=== PATIENT | female | born 1965 | race Caucasian/White ===

== ENCOUNTER 2022-05-25 19:32 | Emergency (ER) | payer MEDICAID, SELFPAY ==
--- NOTE | ~2022-05-25 | CT_ITS ---
EXAMINATION: CT HEAD WITHOUT CONTRAST CLINICAL INFORMATION: EtOH. Fall. COMPARISON: None. TECHNIQUE: Contiguous axial imaging was performed from the skull base to vertex without intravenous contrast. This CT examination was performed using dose optimization techniques as appropriate, variously including the following: * Automated exposure control * Adjustment of mA and/or kV according to patient size (this includes techniques or standardized protocols for targeted exams where dose is matched to indication/reason for exam; i.e. extremities or head) Use of iterative reconstruction technique DLP: 789 mGy-cm. FINDINGS: There is no evidence of acute intracranial hemorrhage or territorial infarction. No abnormal mass effect or midline shift is seen. Garrett to white matter differentiation is well preserved. No extra-axial fluid collections are identified. No hydrocephalus. No significant volume loss. Patchy periventricular and deep white matter hypoattenuation is consistent with mild small vessel ischemic changes. No acute osseous or soft tissue abnormality. Smooth osseous excrescence extends peripherally off of the left parietal calvarium. The mastoid air cells and visualized portions of the paranasal sinuses are well aerated. CT/CT head/brain wo IV con IMPRESSION: No acute intracranial pathology.
[2022-05-25 19:40] VITALS: BP 126/76; PULSE 88; O2SAT 100; BMI 37.1
--- NOTE | 2022-05-25 20:25 | ED_ITS ---
HPI - Alcohol General Chief Complaint: ETOH/Substance Use Stated Complaint: Crisis ETOH Time Seen by Provider: 05/25/22 19:48 Source: patient Mode of arrival: ambulatory History of Present Illness HPI narrative: 56-year-old female with past medical history of ETOH abuse, presenting to the ED via EMS for ETOH intoxication and depression. Patient also reports mechanical trip and fall after getting off right at the [employer]. Denies head trauma or LOC. Patient states she is sick of living, admits to losing her daughter, brother, and in the last 6 months. Reports daily EtOH use, will not specify amount, does report history of ETOH withdrawal, denies withdrawal seizures. Denies other illicit substances, HI. Denies CP/SOB, abdominal pain, back pain, injury MD complaint: alcohol intoxication Last drink: Just prior to admission Related Data Allergies Allergy/AdvReac Type Severity Reaction Status Date / Time No Known Allergies Allergy Verified 05/25/22 20:06 Review of Systems Review of Systems: Constitutional: No Fever, No Chills, No Fatigue, No Malaise ENT/Mouth: No Ear Pain, No Nasal Congestion, No sore throat, No Rhinorrhea, No Swallowing Difficulty Eyes: No Eye Pain, No Swelling, No Redness Cardiovascular: No Chest Pain, No SOB Respiratory: No Cough, No Sputum, No Dyspnea Gastrointestinal: No Nausea, No Vomiting, No Diarrhea, No Constipation, No Abdominal pain Genitourinary: No Dysuria,No Hematuria, No Flank Pain Musculoskeletal: No joint pain, No Myalgias, No Joint Swelling Skin: No Skin Lesions, No rash Neuro: No Weakness, No Loss of Consciousness, No Headache Psych: No Anxiety/Panic, + Depression, +passive SI, No HI/AH/VH, No Social Issues Yes all other systems are reviewed and are negative Constitutional: Constitutional: Reports as per HPI [facility] Past Medical History Attestation statement: The following information was validated with the patient. Social History Social History Advance Directives: No Advance Directives Information Provided: No Physical Exam ED Vital Signs: BMI result Body Mass Index 37.1 Const Other: + EtOH odor on breath, tearful General: cooperative, no acute distress and intoxicated appearing Orientation/consciousness: patient oriented x3 Limitations: no limitations HENMT Head: Yes normal to inspection, Yes atraumatic, No Silveira's sign and No raccoon eyes Ears: hearing grossly normal bilaterally General nose exam: Normal external nose present Face and sinus: Yes normal facial exam Eyes General: appearance normal, both eyes and all related structures Pupils: Equal, round and reactive pupils present EOM: EOMs intact bilaterally Neck Other: No midline cervical spinous tenderness Neck: Yes normal visual inspection and Yes no meningeal signs Resp Effort & Inspection: normal respiratory effort and no respiratory distress Auscultation: clear to auscultation bilaterally Cardio Rate: regular rate Heart sounds: S1 normal heart sound present and S2 normal heart sound present GI Inspection: Yes normal to inspection Palpation (GI): Soft to palpation, nontender, no guarding and not rigid General: Yes no CVA tenderness Back/Spine/Pelvis Other: No midline thoracic/lumbar spinous tenderness/step-off or deformity Back: no CVA tenderness Skin Rashes: no rashes Wounds: no wounds Neuro Other: MONZON, no evidence of trauma General: patient oriented x3, gait normal, tone normal, moves all extremities, no meningeal signs and CN's II-XI intact bilaterally Cranial nerves: Yes Equal, round and reactive pupils present Gait exam (Neuro): Normal gait present Extrem General: Yes normal to inspection Psych Affect: Sad affect present and Irritable affect present Thought content: Depressive thoughts present Course Course Course Narrative: CT head/brain wo IV con IMPRESSION: No acute intracranial pathology. -2100-- ED care transferred to [facility] pending labs, sobriety and crisis consult MDM - Alcohol MDM Narrative Medical decision making narrative: 56-year-old female with past medical history of ETOH abuse, presenting to the ED via EMS for ETOH intoxication and depression. On exam vital signs stable, NAD, EtOH odor on breath, appears intoxicated, no evidence of trauma, no midline spinous tenderness throughout. Patient depressed. Will obtain a CT, labs, and crisis consult Differential Diagnosis Differential diagnosis: Likely alcohol dependence, hypomagnesemia and alcohol intoxication Medical Records Attestation: I reviewed the patient's medical records. Lab Data Attestation: I reviewed the patient's lab results. Discharge Plan Discharge Clinical Impression: Alcoholic intoxication, Depressed Patient Disposition: Still a Patient
--- NOTE | 2022-05-25 20:43 | MHC.RECOVSUP ---
? Reason for consult: Recovery Support o Current location: ED22[facility]? o Identified substance use concern: JACK? - Support ? ?Intervention: ? Additional information:?Patient was combative and was escorted to an unknown location accompanied by Security, I was unable to consult at this time.
[2022-05-25 22:24] LABS: MANUAL DIFF FLAG NO
[2022-05-25 22:26] LABS: Basophils Absolute Auto 0.1 X10*3/uL (0.0-0.2); Basophils Percent Auto 0.6 % (0-2); Eosinophils Absolute Auto 0.2 X10*3/uL (0.0-0.4); Eosinophils Percent Auto 2.7 % (0-4); Hematocrit 46.9 % (37.0-47.0); Hemoglobin 16.2 g/dl (12.0-16.0); Imm Gran Abs Auto 0.02 X10*3/uL (0.00-0.03); Imm Gran Pct Auto 0.2 % (0.0-0.4); Lymphocytes Absolute Auto 2.6 X10*3/uL (1.2-4.9); Lymphocytes Percent Auto 31.2 % (20-40); Mean Corpuscular HGB Conc 34.5 g/dl (31.0-35.0); Mean Corpuscular Volume 89.7 fL (80.0-98.0); Mean Platelet Volume 8.8 fL (9.4-12.3); Monocytes Absolute Auto 0.8 X10*3/uL (0.1-1.2); Monocytes Percent Auto 9.1 % (2-11); Neutrophils Absolute Auto 4.7 x10*3/uL (2.0-8.3); Neutrophils Percent Auto 56.2 % (45-73); Platelet Count 144 X10*3/uL (160-400); Red Blood Count 5.23 X10*6/uL (4.20-5.50); Red Cell Distribution Width 13.2 % (11.0-16.0); White Blood Count 8.4 X10*3/uL (4.8-10.8)
[2022-05-25 22:43] LABS: Acetaminophen LAB < 1 mcg/mL (<30); Alanine Aminotransferase 41 U/L (0-31); Albumin Level 4.7 g/dL (3.5-5.0); Alkaline Phosphatase 90 U/L (39-117); Anion Gap 18 (12-20); Aspartate Amino Transferase 26 U/L (5-31); Bilirubin Direct 0.3 mg/dL (0.0-0.5); Bilirubin Total 0.6 mg/dL (0.0-1.0); Blood Urea Nitrogen 9 mg/dL (9-16); Calcium 9.2 mg/dL (8.4-10.2); Carbon Dioxide 20 mmol/L (22-29); Chloride 103 mmol/L (96-108); Creatinine Clr Calc Pharmacy 82.5; Estimated Glomerular Filt Rate > 60; Ethanol 246 mg/dL; Glucose Random 91 mg/dL (60-115); Lipase 25 U/L (8-78); Magnesium 2.1 mg/dL (1.6-2.6); Potassium 4.1 mmol/L (3.3-5.1); Salicylate < 5.0 mg/dL (15-30); Sodium 137 mmol/L (135-145); Total Protein 8.1 g/dL (6.5-8.0)
[2022-05-25 22:44] LABS: COVID-19 Test Negative (Negative); IDNOW Serial# 16C4AD1C
[2022-05-25] MEDS: Ziprasidone 20 MG CAPSULE 60 MG PO (23:02)
[2022-05-25] MEDS: Gabapentin 600 MG TABLET PO (23:02)
[2022-05-25] MEDS: Lithium Carbonate ER 300 MG TABLET.ER PO (23:02)
[2022-05-26 05:59] VITALS: BP 143/78; PULSE 80; RESP 16; TEMP 36.7; O2SAT 96
[2022-05-26 08:00] VITALS: BP 171/85; PULSE 83; RESP 18; O2SAT 96
[2022-05-26] MEDS: Gabapentin 600 MG TABLET PO (08:52)
[2022-05-26] MEDS: lisinopriL 20 MG TABLET PO (08:52)
[2022-05-26] MEDS: Lithium Carbonate ER 300 MG TABLET.ER PO (08:52)
[2022-05-26] MEDS: Acetaminophen 325 MG TABLET 650 MG PO (09:39)
[2022-05-26] MEDS: Nicotine 21 MG PATCH.TD24 TRANSDERMA (09:40)
--- NOTE | 2022-05-26 09:49 | MHC.RECOVSUP ---
Recovery Support note: Patient is a 56 year old Pakistani speaking female who presented to [facility] due to alcohol intoxication. This lead technical writer met with patient to discuss substance use and treatment options. Patient reports she has was doing well with her recovery however has had multiple losses over the past year and has entered a funk. Patient reports periods of sobriety punctuated by binge drinking. Patient is set to start an IOP on Saturday and saw this weekend as her last weekend to drink. Patient went to the [employer] and drank to the point of blacking out. Discussed relapse prevention and recovery supports. Patient is not interested in waiting for N to discuss her depression. Patient denies SI/HI and feels safe to discharge. Discussed with patient's provider. Plan for patient to have her daughter pick her up and for patient to follow up with IOP on Saturday.
== END 2022-05-26 10:35 | disposition home or self-care (01) ==
PROVIDERS: Physician Assistant; Emergency Provider Emergency Medicine
DX: F10.120 Alcohol abuse with intoxication, uncomplicated (principal); Y90.8 Blood alcohol level of 240 mg/100 ml or more; F32.A Depression, unspecified; R45.851 Suicidal ideations; Z20.822 Contact with and (suspected) exposure to COVID-19
CPT/HCPCS: 70450; 80048; 80076; 80143; 80179; 82077; 83690; 83735; 85025; 87635; 99284